=== PATIENT | female | born 1970 | race Caucasian/White ===

== ENCOUNTER 2018-06-27 15:31 | Observation (INO) | payer BC, OTHER, SELFPAY ==
[~2018-06-27] VITALS: Ht 157.5 cm; Wt 81.8 kg
[2018-06-27] MEDS ORDERED: ASPIRIN 81 MG TABLET CHEW ONE ×2 (15:45→16:46)
[2018-06-27] MEDS ORDERED: ASPIRIN 81 MG TABLET CHEW PO ONE (16:00)
[2018-06-27 16:29] LABS: BASOPHILS # (AUTO) 0.05 x10^3/uL (0-0.1); BASOPHILS % (AUTO) 1 % (0-1); EOSINOPHILS % (AUTO) 3 % (1-7); LYMPHOCYTES # (AUTO) 0.79 x10^3/uL (1-3.4); LYMPHOCYTES % (AUTO) 13 % (22-44); MD NO; MEAN CORPUSCULAR HEMOGLOBIN 28.3 pg (27.0-34.8); MEAN CORPUSCULAR HGB CONC 33.6 g/dL (32.4-35.8); MEAN CORPUSCULAR VOLUME 84.3 fL (80-100); MEAN PLATELET VOLUME 7.8 fL (7.4-10.4); MONOCYTES % (AUTO) 13 % (2-9); NEUTROPHILS # (AUTO) 4.24 x10^3/uL (1.8-6.8); NEUTROPHILS % (AUTO) 70 % (42-75); PLATELET COUNT 252 x10^3/uL (130-400); RED BLOOD COUNT 5.21 x10^6/uL (3.82-5.3); RED CELL DISTRIBUTION WIDTH 15.7 % (9.6-15.2)
[2018-06-27 16:38] LABS: ALANINE AMINOTRANSFERASE 25 U/L (12-78); ALBUMIN 3.2 g/dL (3.4-5.0); ANION GAP 8 mmol/L (5-15); CALCIUM 8.3 mg/dL (8.5-10.1); CHLORIDE 105 mmol/L (98-107); CREATININE 0.88 mg/dL (0.55-1.02)
[2018-06-27 16:42] LABS: ALKALINE PHOSPHATASE 69 U/L (45-117); BILIRUBIN,TOTAL 0.3 mg/dL (0.2-1.0); TOTAL PROTEIN 6.9 g/dL (6.4-8.2); TROPONIN I < 0.015 ng/mL (0.000-0.045)
[2018-06-27] MEDS ORDERED: DUPI300S TP (17:27)
[2018-06-27] MEDS ORDERED: MORPHINE SULFATE 4 MG/ML, 1ML ONE (18:11)
[2018-06-27] MEDS ORDERED: ONDANSETRON 2MG/ML, 2ML ONE ×2 (18:11→21:35)
[2018-06-27] MEDS ORDERED: MORPHINE SULFATE 4 MG/ML, 1ML IVPush PRN (18:30)
[2018-06-27] MEDS ORDERED: ONDANSETRON 2MG/ML, 2ML IVPush ONE (18:30)
[2018-06-27] MEDS ORDERED: BUPIVACAINE/PF-EPI 0.5% 1:200K ONE (19:46)
[2018-06-27] MEDS ORDERED: BUPIVACAINE/PF-EPI 0.5% 1:200K IM ONE (20:05)
[2018-06-27] MEDS ORDERED: FENTANYL PF 250 MCG/5ML ONE (20:56)
[2018-06-27] MEDS ORDERED: PROPOFOL 10 MG/ML, 20ML ONE ×2 (20:56→21:35)
[2018-06-27] MEDS ORDERED: LABETALOL 5MG/ML, 20ML ONE (20:56)
[2018-06-27] MEDS ORDERED: MIDAZOLAM 1 MG/ML, 2ML ONE (20:56)
[2018-06-27] MEDS ORDERED: KETOROLAC 30 MG/1 ML ONE (20:56)
[2018-06-27] MEDS ORDERED: CEFOTETAN PMX 2GM/50ML 50 ML ONE (21:03)
[2018-06-27] MEDS ORDERED: CEFOTETAN PMX 2GM/50ML 0 ML ONE (21:03)
[2018-06-27] MEDS ORDERED: PROMETHAZINE 25 MG SUPP PR PRN (21:30)
[2018-06-27] MEDS ORDERED: SCOPOLAMINE PATCH, 1.5MG PATCH.TD72 TD PRN (21:30)
[2018-06-27] MEDS ORDERED: ONDANSETRON 2MG/ML, 2ML IV PRN (21:30)
[2018-06-27] MEDS ORDERED: ALBUTEROL/IPRATROPIUM 2.5MG/0.5MG, 3 ML NPPB PRN (21:30)
[2018-06-27] MEDS ORDERED: HYDROmorphone 1 MG/ML, 1ML IV PRN (21:30)
[2018-06-27] MEDS ORDERED: MIDAZOLAM 1 MG/ML, 2ML IV PRN (21:30)
[2018-06-27] MEDS ORDERED: OXYcodone 5 MG/5 ML ORAL.SOL UDC PO PRN ×2 (21:30→22:00)
[2018-06-27] MEDS ORDERED: ACETAMINOPHEN 325 MG TABLET PO PRN (21:30)
[2018-06-27] MEDS ORDERED: MEPERIDINE/PF 25MG/0.5ML IVPush PRN (21:30)
[2018-06-27] MEDS ORDERED: GLYCOPYRROLATE 0.2MG/1ML, 5ML ONE (21:35)
[2018-06-27] MEDS ORDERED: SUCCINYLCHOLINE 20 MG/ML, 10ML ONE (21:35)
[2018-06-27] MEDS ORDERED: CEFAZOLIN 1,000 MG ONE (21:35)
[2018-06-27] MEDS ORDERED: NEOSTIGMINE 1 MG/ML, 10ML ONE (21:35)
[2018-06-27] MEDS ORDERED: ROCURONIUM 10MG/ML,5ML ONE (21:35)
[2018-06-27] MEDS ORDERED: DEXAMETHASONE 4 MG/ML, 1ML ONE (21:35)
[2018-06-27] MEDS ORDERED: OXYcodone 5 MG/5 ML ORAL.SOL UDC ONE (21:46)
[2018-06-27] MEDS ORDERED: FENTANYL PF 100 MCG/2ML ONE (21:46)
[2018-06-27] MEDS: FENTANYL PF 100 MCG/2ML IV PRN ×2 (21:50→21:58)
[2018-06-27] MEDS: LABETALOL 5MG/ML, 20ML IV PRN ×2 (21:55→22:03)
[2018-06-27] MEDS ORDERED: morphine SULFATE 10 MG/ML, 1ML IVPush PRN (22:00)
[2018-06-27] MEDS ORDERED: ONDANSETRON 2MG/ML, 2ML IVPush PRN (22:00)
[2018-06-27] MEDS ORDERED: DIPHENHYDRAMINE 50 MG/ML, 1ML IVPush PRN (22:00)
[2018-06-27] MEDS ORDERED: hydrALAzine 20 MG/ML, 1ML ONE (22:13)
[2018-06-27] MEDS ORDERED: hydrALAzine 20 MG/ML, 1ML IV ONE (22:30)
[2018-06-27] MEDS ORDERED: OXYC5TAB2 PO (23:34)
[2018-06-27 23:48] VITALS: BP 177/89
== END 2018-06-28 01:00 | disposition home or self-care (01) ==
LOC: ED 17:37 → EDIP 17:38 → INTOOBSV 17:38 → ED 17:42 → 4NOR 22:40
PROVIDERS: ADMIT Surgery; ATTEND Surgery
DX: K81.0 Acute cholecystitis (principal); K81.1 Chronic cholecystitis
CPT/HCPCS: 36415; 47562; 71046; 76700; 80053; 83690; 84484; 84703; 85025; 88304; 93005; 96374; 96375; 96376; 99285; G0378; J0330; J0360; J0690; J1100; J1885; J2250; J2270; J2405; J2704; J2710; J3010; J3490; S0074; 96372